=== PATIENT | male | born 1945 | race Caucasian/White ===

== ENCOUNTER 2023-04-24 10:07 | Inpatient (IN) | payer MEDICARE, OTHER ==
[2023-04-24] MEDS ORDERED: Ondansetron ODT 4 MG TAB PO PRN (12:53)
[2023-04-24] MEDS ORDERED: Lorazepam 2 MG/ML VIAL IM PRN (12:53)
[2023-04-24] MEDS ORDERED: hydrALAZINE 20 MG/ML VIAL SLOW IVP PRN (12:53)
[2023-04-24] MEDS ORDERED: HYDROcodone/Acetaminophen 5/325 mg Tablet PO PRN (12:53)
[2023-04-24] MEDS ORDERED: Acetaminophen 325 MG TAB PO PRN (12:53)
[2023-04-24] MEDS ORDERED: Lorazepam 1 MG TAB PO PRN (12:53)
[2023-04-24] MEDS ORDERED: Electrolyte Replacement Protocol 1 EACH FS SCH (13:00)
[2023-04-24] MEDS ORDERED: Nicotine 14 MG PATCH TD SCH (13:00)
[2023-04-24 13:02] VITALS: BMI 30.7
[2023-04-24] MEDS ORDERED: Folic Acid 1 MG TAB PO SCH (13:15)
[2023-04-24] MEDS ORDERED: Multivit, Therapeutic 1 TAB PO SCH (13:15)
[2023-04-24 14:19] LABS: ALT (SGPT) 28 U/L (8-55); AST (SGOT) 29 U/L (5-34); Albumin 3.8 g/dL (3.4-4.8); Alkaline Phosphatase 73 U/L (40-110); Anion Gap 14 mmol/L (10-20); BUN (Urea Nitrogen) 7 mg/dL (8.4-25.7); Bilirubin, Direct 0.3 mg/dL (0.1-0.3); Bilirubin, Total 0.8 mg/dL (0.2-1.2); Calc. Creatinine Clearance 103 mL/min (70-130); Calcium 9.1 mg/dL (7.8-10.44); Carbon Dioxide 25 mmol/L (23-31); Chloride 102 mmol/L (98-107); Estimated GFR 89; Globulin 2.9 g/dL (2.4-3.5); Glucose 109 mg/dL (83-110); Magnesium 1.6 mg/dL (1.6-2.6); Phosphorus 3.3 mg/dL (2.3-4.7); Potassium 4.4 mmol/L (3.5-5.1); Protein, Total 6.7 g/dL (5.8-8.1); Sodium 137 mmol/L (136-145)
[2023-04-24 14:40] LABS: #Basophils 0.1 10x3/uL (0.0-0.2); #Eosinphils 0.1 10x3/uL (0.0-0.5); #Monocytes 0.7 10x3/uL (0.0-1.1); #Neutrophils 7.2 10x3/uL (1.5-8.4); %Basophils 0.7 % (0.0-2.0); %Eosinophils 1.2 % (0.0-6.0); %Lymphocytes 12.4 % (18.0-47.0); %Monocytes 7.1 % (0.0-10.0); %Neutrophils 77.7 % (40.0-75.0); Hematocrit 29.4 % (38.8-50.0); Hemoglobin 10.2 g/dL (13.5-17.5); Mean Corpuscular HGB CONC 34.7 g/dL (32.0-36.0); Mean Corpuscular Hemoglobin 38.6 pg (27.0-33.0); Mean Corpuscular Volume 111.4 fl (81.2-95.1); Mean Platelet Volume 10.1 fl (7.4-10.4); Platelet Count 228 10x3/uL (150-450); RBC Distribution Width 14.4 % (11.5-14.5); Red Blood Cell (RBC) Count 2.64 10x6/uL (4.32-5.72); White Blood Cell (WBC) Count 9.2 10x3/uL (3.5-10.5)
[2023-04-24 14:41] LABS: Macrocytosis SLIGHT = 6-15 cells (100X) (0-5/hpf)
[2023-04-24 14:42] LABS: Polychromasia SLIGHT = 2-3 cells (100X) (0-2/hpf); Stomatocytes SLIGHT = 2-5 cells (100X) (0-1/hpf)
[2023-04-24] MEDS ORDERED: Magnesium 2 GM/50 ML(in water) 2 GM in Premix 1 BAG IVPB SCH ×2 (15:00→16:00)
[2023-04-24] MEDS: Lorazepam 1 MG TAB PO SCH ×2 (16:31→22:09)
[2023-04-24 16:44] LABS: Iron 72 ug/dL (65-175); Iron Binding Capacity, Total 295 mcg/dL (261-462)
[2023-04-24] MEDS ORDERED: Atorvastatin Calcium 40 MG TAB PO SCH (21:00)
[2023-04-25 01:42] LABS: Amphetamine Not Detected (NotDetected); Barbiturates Screen Not Detected (NotDetected); Benzodiazepine Screen Not Detected (NotDetected); Cocaine Metabolite Screen Not Detected (NotDetected); Methadone Not Detected (NotDetected); Methamphetamine Not Detected (NotDetected); Opiate Screen Not Detected (NotDetected); Oxycodone Screen Not Detected (NotDetected); Phencyclidine (PCP) Not Detected (NotDetected); THC/Cannabinoid Screen Not Detected (NotDetected); Tricyclic Screen Not Detected (NotDetected)
[2023-04-25 04:00] LABS: #Basophils 0.1 10x3/uL (0.0-0.2); #Eosinphils 0.3 10x3/uL (0.0-0.5); #Monocytes 0.7 10x3/uL (0.0-1.1); #Neutrophils 4.9 10x3/uL (1.5-8.4); %Basophils 0.7 % (0.0-2.0); %Eosinophils 4.2 % (0.0-6.0); %Lymphocytes 18.7 % (18.0-47.0); %Monocytes 8.9 % (0.0-10.0); %Neutrophils 66.8 % (40.0-75.0); Hemoglobin 8.9 g/dL (13.5-17.5); Mean Corpuscular HGB CONC 34.2 g/dL (32.0-36.0); Mean Corpuscular Hemoglobin 38.2 pg (27.0-33.0); Mean Corpuscular Volume 111.6 fl (81.2-95.1); Mean Platelet Volume 9.8 fl (7.4-10.4); Platelet Count 195 10x3/uL (150-450); RBC Distribution Width 14.2 % (11.5-14.5); Red Blood Cell (RBC) Count 2.33 10x6/uL (4.32-5.72); White Blood Cell (WBC) Count 7.3 10x3/uL (3.5-10.5)
[2023-04-25 04:16] LABS: Anion Gap 12 mmol/L (10-20); BUN (Urea Nitrogen) 8 mg/dL (8.4-25.7); Calc. Creatinine Clearance 106 mL/min (70-130); Calcium 8.5 mg/dL (7.8-10.44); Carbon Dioxide 25 mmol/L (23-31); Cardiac Risk 1.9 (Less than 4.5); Chloride 103 mmol/L (98-107); Cholesterol 116 mg/dl (< 200 Desired); Estimated GFR 89; Glucose 104 mg/dL (83-110); HDL Cholesterol 61 mg/dL (>60 Neg Risk); LDL Cholesterol, Calculated 49 mg/dL; Magnesium 1.9 mg/dL (1.6-2.6); Sodium 136 mmol/L (136-145); Triglycerides 31 mg/dL (Less than 150)
[2023-04-25] MEDS: Lorazepam 1 MG TAB PO SCH ×2 (07:39→08:44)
[2023-04-25] MEDS ORDERED: Magnesium 2 GM/50 ML(in water) 2 GM in Premix 1 BAG IVPB SCH (08:00)
[2023-04-25] MEDS ORDERED: Multivit, Therapeutic 1 TAB PO SCH (09:00)
[2023-04-25] MEDS ORDERED: Folic Acid 1 MG TAB PO SCH (09:00)
[2023-04-25] MEDS ORDERED: Aspirin 81 mg Enteric Coated Tablet PO SCH (09:00)
[2023-04-25 10:58] LABS: Syphilis Antibody Nonreactive (Nonreactive); Syphilis Antibody Index 0.14 S/CO (<1.00 Non-Reactive)
[2023-04-25 11:02] LABS: Thyroid Stimulating Hormone 1.103 uIU/mL (0.35-4.94)
[2023-04-25 12:26] VITALS: BP 143/64; TEMP 98.3
[2023-04-25] MEDS ORDERED: Lorazepam 1 MG TAB PO PRN (12:56)
[2023-04-25] MEDS ORDERED: Thiamine HCl 200 MG/2 ML VIAL SLOW IVP SCH (13:00)
[2023-04-25 15:27] LABS: Hemoglobin A1c 4.9 % (4.0-6.0)
[2023-04-26] MEDS ORDERED: Lorazepam 1 MG TAB PO PRN (12:56)
[2023-04-26] MEDS ORDERED: Lorazepam 0.5 MG TAB PO SCH (13:00)
[2023-04-27 12:11] LABS: ANA Symphony (Qualitative) Negative (Negative); ANA Symphony (Quantitative) 0.4 Ratio (< 0.7 Negative); dsDNA IgG Antibody 1.1 IU/mL (<10 Negative)
[2023-04-27] MEDS ORDERED: Lorazepam 0.5 MG TAB PO PRN (12:56)
== END 2023-04-25 12:20 | disposition left against medical advice (07) | DRG 69 ==
LOC: CSHTELE 11:23 → OBSVTOIN 12:49
PROVIDERS: ADMIT Internal Medicine; ATTEND Internal Medicine
DX: G45.9 Transient cerebral ischemic attack, unspecified (principal); D62 Acute posthemorrhagic anemia; I48.0 Paroxysmal atrial fibrillation; Z79.01 Long term (current) use of anticoagulants; Z79.899 Other long term (current) drug therapy; E78.5 Hyperlipidemia, unspecified; Z98.890 Other specified postprocedural states; Z88.8 Allergy status to other drugs, medicaments and biological substances; Z88.1 Allergy status to other antibiotic agents; Z88.2 Allergy status to sulfonamides; E83.42 Hypomagnesemia
CPT/HCPCS: 36415; 70551; 71045; 80048; 80053; 80061; 80306; 82248; 82607; 82728; 83036; 83540; 83550; 83735; 84100; 84207; 84425; 84443; 85025; 86038; 86140; 86225; 86780; 93306; 93880; J3475